=== PATIENT | female | born 1960 | race Caucasian/White ===

== ENCOUNTER → 2020-06-14 | Outpatient (CLI) | payer OTHER, BC | LOC: RAD 14:59 | DX: S90.32XA Contusion of left foot, initial encounter (principal) | CPT/HCPCS: 73610; 73630 ==

== ENCOUNTER → 2020-09-02 | Outpatient (CLI) | payer BC, OTHER | LOC: HEART CORB 08:54 | DX: I49.9 Cardiac arrhythmia, unspecified (principal); R07.2 Precordial pain; I08.1 Rheumatic disorders of both mitral and tricuspid valves | CPT/HCPCS: 93306 ==